=== PATIENT | male | born 1960 | race Caucasian/White ===

== ENCOUNTER → 2018-01-10 | Outpatient (CLI) | payer SELFPAY ==
--- NOTE | 2018-01-12 08:58 | RAD ---
EXAM DESCRIPTION: Pelvis CR. CLINICAL HISTORY: HIP PN COMPARISON: Radiographs left knee on the same visit. TECHNIQUE: AP view only. FINDINGS: No fracture dislocation. Normal bone density. Right hip joint shows narrowing of the superior lateral joint space with minimal hypertrophy of the superior lateral acetabulum and small bone density abutting this has spur. Enthesophytes on the iliac crests and ischial tuberosities. No abnormal radiodense objects in the soft tissues or joint spaces. IMPRESSION: Minimal narrowing of the superior lateral right hip joint space with hypertrophy of the superior lateral margin, forming a spur, and small bone density abutting these spur. No acute bony or joint margin abnormalities. Electronically signed by: Bowen Penaloza MD 01/12/2018 8:56 AM [facility]
--- NOTE | 2018-01-12 09:02 | RAD ---
EXAM DESCRIPTION: Knee,Left Complete: CR. CLINICAL HISTORY: 57 M KNEE PN COMPARISON: Pelvis radiograph on the same visit. TECHNIQUE: AP, lateral and 45 degrees AP standing, and patellar sunrise 4 views, left knee. FINDINGS: No fracture. Small suprapatellar effusion. Superior marginal spurs on the patella and superior enthesophyte. Radiodensity behind the knee and at least 3 radiodensities either in the patellar tendon more anterior in the subcutaneous tissues. Medial and lateral patellofemoral joint spaces are symmetric. Medial and lateral compartments are symmetric. Questionable medial shift of the femur on the tibia. IMPRESSION: Radiodensities in the patellar tendon or anterior adipose tissue in the superior patellar marginal spur. Minimal suprapatellar effusion. Patellofemoral joint spaces and medial and lateral compartments are symmetric. Questionable medial shift of the femur on the tibia could indicate internal derangement. Electronically signed by: Bowen Penaloza MD 01/12/2018 9:01 AM [facility]
== END ==
LOC: RAD 08:08
PROVIDERS: ATTEND Orthopaedic Surgery
DX: M25.562 Pain in left knee (principal); M25.552 Pain in left hip